=== PATIENT | female | born 1990 | race Hispanic/Latino ===

== ENCOUNTER → 2017-11-06 | Outpatient (REF) | payer OTHER ==
[2017-11-07 09:14] LABS: CONTROL LINE HPYORI INT CTR LINE PRESENT; H PYLORI QUALITATIVE IgG NEGATIVE (NEGATIVE)
== END ==
LOC: M LAB REF 17:46
DX: D69.3 Immune thrombocytopenic purpura (principal)
CPT/HCPCS: 86677

== ENCOUNTER 2017-12-24 09:23 | Day surgery (SDC) | payer OTHER ==
[2017-12-24 10:07] LABS: HEMATOCRIT 36.9 % (36.0-47.0); HEMOGLOBIN 12.5 g/dl (12.0-15.5); MEAN CORPUSCULAR HEMOGLOBIN 30.3 pg (27.0-33.0); MEAN CORPUSCULAR HGB CONC 33.9 g/dl (32.0-36.5); MEAN CORPUSCULAR VOLUME 89.6 fl (80.0-96.0); PLATELET COUNT, AUTOMATED 115 10^3/uL (150-450); RED BLOOD COUNT 4.12 10^6/uL (4.00-5.40); RED CELL DISTRIBUTION WIDTH 12.2 % (11.5-14.5); WHITE BLOOD COUNT 4.6 10^3/uL (4.0-10.0)
[2017-12-24] MEDS: LR 1,000 ML IV (10:30)
[2017-12-24] MEDS: DOXYCYCLINE HYCLATE 100 MG TAB PO ×2 (10:39→14:21)
[2017-12-24] MEDS ORDERED: ROCURONIUM BROMIDE 50 MG/5 ML VIAL As Ordered (11:23)
[2017-12-24] MEDS ORDERED: MIDAZOLAM INJ 2 MG/2 ML VIAL (J2250) As Ordered (11:37)
[2017-12-24] MEDS ORDERED: fentaNYL 100 MCG/2 ML INJECTION (J3010) As Ordered ×2 (11:37→12:22)
[2017-12-24] MEDS ORDERED: dexameTHASONE 4 MG/ML 1ML VIAL (J1100) As Ordered (11:37)
[2017-12-24] MEDS ORDERED: ONDANSETRON 4MG/2ML VIAL (J2405) As Ordered (11:37)
[2017-12-24] MEDS ORDERED: LIDOCAINE 2% INJ 100 MG/5 ML SDV (FOR ANES.) As Ordered (11:37)
[2017-12-24] MEDS ORDERED: PROPOFOL 200 MG/20 ML VIAL As Ordered (11:37)
[2017-12-24] MEDS ORDERED: PHENYLephrine HCL 500 MCG/5 ML (100MCG/ML) SYRINGE (J2370) As Ordered (11:44)
[2017-12-24] MEDS ORDERED: NEOSTIGMINE 10 MG/10 ML VIAL (J2710) As Ordered (11:53)
[2017-12-24] MEDS ORDERED: GLYCOPYRROLATE INJ 0.2 MG/ML 2 ML VIAL As Ordered (11:53)
[2017-12-24] MEDS: LIDOCAINE 1% SDV INJ 30 ML VIAL As Ordered (12:21)
[2017-12-24] MEDS: fentaNYL 100 MCG/2 ML INJECTION (J3010) IV (12:25)
[2017-12-24] MEDS ORDERED: NORCO, ANEXSIA 5/325MG TABLET (HYDROcodone/ACETAMINOPHEN) PO (12:30)
[2017-12-24] MEDS ORDERED: LR 1,000 ML IV (12:30)
[2017-12-24] MEDS ORDERED: ONDANSETRON 4MG/2ML VIAL (J2405) IV (12:30)
[2017-12-24] MEDS ORDERED: KETOROLAC 30 MG/ML VIAL (J1885) As Ordered (12:33)
[2017-12-24] MEDS: KETOROLAC 30 MG/ML VIAL (J1885) IV (12:50)
== END 2017-12-24 14:45 | disposition home or self-care (01) ==
LOC: M SDC 09:23
DX: O02.1 Missed abortion (principal); D69.3 Immune thrombocytopenic purpura; Z88.0 Allergy status to penicillin
CPT/HCPCS: 59820

== ENCOUNTER 2018-01-01 05:51 | Emergency (ER) | payer OTHER ==
[2018-01-01 06:21] LABS: KETONE, URINE AUTO RFX NEGATIVE (NEGATIVE); LEUKOCYTE ESTERASE UR AUTO RFX 2+ (NEGATIVE); NITRITE, URINE AUTO RFX NEGATIVE (NEGATIVE); RBC, URINE AUTO RFX 0 /HPF (0-3); SQUAM EPITHELIAL CELL UR AURFX 0 /HPF (0-6); WBC, URINE AUTO RFX 8 /HPF (0-3)
== END 2018-01-01 07:14 | disposition home or self-care (01) ==
LOC: M ED 05:51
DX: N30.00 Acute cystitis without hematuria (principal); Z98.890 Other specified postprocedural states; Z88.0 Allergy status to penicillin
CPT/HCPCS: 81001

== ENCOUNTER → 2018-04-04 | Outpatient (CLI) | payer OTHER ==
[~2018-04-04] MED LIST: ISOVUE-370 76% 100ML VIAL (Q9967) As Ordered
== END ==
LOC: M RAD 09:43
DX: R59.0 Localized enlarged lymph nodes (principal)
CPT/HCPCS: Q9967

== ENCOUNTER → 2018-04-14 | Outpatient (CLI) | payer OTHER ==
[~2018-04-14] MED LIST changes: -ISOVUE-370 76% 100ML VIAL (Q9967) As Ordered; +LIDOCAINE 1% MDV 20ML VIAL As Ordered
== END ==
LOC: M RADPRO 14:18
DX: R59.0 Localized enlarged lymph nodes (principal); Z88.0 Allergy status to penicillin
CPT/HCPCS: 10022

== ENCOUNTER 2018-12-22 07:47 | Inpatient (IN) | payer OTHER ==
[2018-12-22] VITALS (9 sets, daily range): BP systolic 80–113; BP diastolic 43–63
[~2018-12-22] VITALS: Ht 157.5 cm; Wt 72.0 kg
[~2018-12-22 07:47] MED LIST changes: +BACT800T5 PO; +CLINDAMYCIN 900 MG in APPROPRIATE DILUENT 1 EA IV ONE; +DIFL150T PO; +FLAG500T PO; +IRON65TA2 PO; -LIDOCAINE 1% MDV 20ML VIAL As Ordered; +LR 1,000 ML IV SCH; +MULTTAB20 PO; +PYRI1TAB5 PO; +VITA-158 PO
[2018-12-22] MEDS ORDERED: GENTAMICIN 350 MG in D5W 100 ML IV ONE (09:00)
[2018-12-22] MEDS: PRENATAL VITAMINS CHEWABLE TABLET PO SCH (09:00)
[2018-12-22 09:04] LABS: HEMATOCRIT 36.2 % (36.0-47.0); HEMOGLOBIN 12.1 g/dl (12.0-15.5); MEAN CORPUSCULAR HEMOGLOBIN 30.6 pg (27.0-33.0); MEAN CORPUSCULAR HGB CONC 33.4 g/dl (32.0-36.5); MEAN CORPUSCULAR VOLUME 91.4 fl (80.0-96.0); PLATELET COUNT, AUTOMATED 122 10^3/uL (150-450); RED BLOOD COUNT 3.96 10^6/uL (4.00-5.40)
[2018-12-22] MEDS ORDERED: BICITRA 30ML SOLN UDC As Ordered ONE (09:28)
[2018-12-22] MEDS ORDERED: BICITRA 30ML SOLN UDC PO ONE (09:45)
[2018-12-22] MEDS ORDERED: dexameTHASONE 4 MG/ML 1ML VIAL (J1100) As Ordered ONE (10:01)
[2018-12-22] MEDS ORDERED: KETOROLAC 60 MG/2 ML VIAL (J1885) As Ordered ONE (10:01)
[2018-12-22] MEDS ORDERED: fentaNYL 100 MCG/2 ML INJECTION (J3010) As Ordered ONE (10:01)
[2018-12-22] MEDS ORDERED: MORPHINE PRES-FREE INJ 10 MG/10 ML VIAL (J2274) As Ordered ONE (10:01)
[2018-12-22] MEDS ORDERED: OXYTOCIN INJ 10 UNITS/ML VIAL (J2590) As Ordered ONE (10:01)
[2018-12-22] MEDS ORDERED: ONDANSETRON 4MG/2ML VIAL (J2405) As Ordered ONE (10:01)
[2018-12-22] MEDS ORDERED: NALOXONE INJ 0.4 MG/1 ML VIAL (J2310) IV PRN ×2 (10:17)
[2018-12-22] MEDS ORDERED: diphenhydrAMINE INJ 50MG/ML VIAL (J1200) IV PRN (10:17)
[2018-12-22] MEDS ORDERED: NALBUPHINE HCL 10 MG/ML AMP (J2300) IV PRN (10:17)
[2018-12-22] MEDS ORDERED: ONDANSETRON 4MG/2ML VIAL (J2405) IV PRN ×2 (10:17→11:45)
[2018-12-22] MEDS ORDERED: METOCLOPRAMIDE INJ 10MG/2ML VIAL (J2765) IV PRN ×2 (10:17→11:45)
[2018-12-22] MEDS ORDERED: ePHEDrine SULFATE 25 MG/5 ML(5MG/ML) SYRINGE As Ordered ONE (10:25)
[2018-12-22] MEDS ORDERED: ACETAMINOPHEN 1000MG 100ML IV BTL (OFIRMEV) (J0131 PER 10MG) As Ordered ONE (11:01)
[2018-12-22] MEDS ORDERED: RHOGAM 300 MCG (1500 IU) INJ (J2790) IM SCH (11:30)
[2018-12-22] MEDS ORDERED: MEASLES,MUMPS,RUBELLA VACCINE INJ (MMR-II) (90707) SC SCH (11:30)
[2018-12-22] MEDS ORDERED: PROMETHAZINE 25 MG TAB PO PRN (11:30)
[2018-12-22] MEDS ORDERED: PERCOCET 5MG/325MG TAB PO PRN ×2 (11:30→11:45)
[2018-12-22] MEDS ORDERED: fentaNYL 100 MCG/2 ML INJECTION (J3010) IV PRN (11:45)
[2018-12-22] MEDS ORDERED: MEPERIDINE INJ 25 MG/ML VIAL (J2175) IV PRN (11:45)
[2018-12-22] MEDS ORDERED: LR 1,000 ML IV SCH (11:45)
[2018-12-22] MEDS ORDERED: SLF 3 ML SYR IV PRN (13:45)
[2018-12-22] MEDS: SLF 3 ML SYR IV SCH ×2 (14:00→22:21)
[2018-12-22] MEDS: KETOROLAC 30 MG/ML VIAL (J1885) IV SCH ×2 (16:24→22:21)
--- NOTE | 2018-12-22 23:30 | RO ---
DATE OF PROCEDURE: 12/22/2018 PREPROCEDURE DIAGNOSIS: History of section, no desire for trial of labor after (TOLAC). POSTPROCEDURE DIAGNOSIS: History of section, no desire for trial of labor after . PROCEDURE: Elective repeat low transverse section. SURGEON: Dr. Mike Devine AUDIT ANALYST: Darshaan Elam CNM whose assistance with exposure, retraction, visualization and delivery of the was essential. ANESTHESIA: Spinal. FLUIDS: 1600 mL lactated Ringer's. URINE OUTPUT: 150 mL via Paul catheter. ESTIMATED BLOOD LOSS: 500 mL. COMPLICATIONS: None. ANTIBIOTICS: 900 mL of clindamycin and 350 mg of gentamicin. OPERATIVE FINDINGS: Viable male infant found in cephalic direct occiput posterior (OP) presentation. scores 9 and 9. weight 3390 grams or 7 pounds 8 ounces. DETAILED PROCEDURE DESCRIPTION: The risks, benefits, indications and alternatives of the procedure were reviewed with the patient and informed consent was obtained. The patient was taken to the operating room where spinal anesthesia was obtained without difficulty. She was then prepped and draped in the usual sterile fashion in the dorsal supine position with a leftward tilt. A surgical time-out was then performed in which the patient's identify and planned procedure were verified with the operative team. A Pfannenstiel skin incision was then made with a scalpel and carried through to the underlying layer of fascia using the Bovie. The fascia was incised in the midline and incision was extended laterally with Gibson scissors. The superior aspect of the fascial incision was grasped with Riky clamps, elevated, and the underlying rectus muscles were dissected off with a scalpel. Attention was then turned to the inferior aspect of this incision, which in a similar fashion was grasped, tented up with Riky clamps, and the rectus muscles were dissected off with Gibson scissors. The rectus muscles were then in the midline. The peritoneum was identified and entered digitally. The peritoneal incision was then extended horizontally and superiorly with good visualization of the bladder. A bladder blade was then inserted into the abdomen. The vesicouterine peritoneum was then identified and entered sharply with a scalpel. This incision was then extended laterally and a bladder flap was created digitally. Next, the lower uterine segment was incised in a transverse fashion with a scalpel. The uterine incision was then extended manually. The amniotic sac was artificially ruptured, productive of clear fluid. The was found to be in cephalic direct OP presentation. The infant's head was then delivered atraumatically through the hysterotomy without difficulty followed by the remainder of the body. The infant's nose and mouth were then suctioned with a bulb syringe. The cord was doubly clamped and cut. The infant was then handed off to the awaiting pediatricians. The placenta was then removed manually, and the uterus was exteriorized and cleared of all clots and debris. The uterine incision was then repaired with #0 Monocryl suture in a running locked fashion. A second layer of #0 Monocryl was then used to imbricate the hysterotomy in a vertical fashion. The posterior cul-de-sac was then irrigated. Inspection of hysterotomy revealed excellent hemostasis. The uterus was then returned to the abdomen. The hysterotomy was again inspected, and it was noted to be hemostatic. The paracolic gutters were then irrigated and cleared of all clots and debris. The bladder blade was then removed from the abdomen. The peritoneum was then closed in a running suture of #3-0 Vicryl. The fascia was then closed with #0 Vicryl suture in a running fashion. The subcutaneous fat was closed with #3-0 Vicryl suture in a running fashion. The skin was closed with #4-0 Monocryl in a subcuticular fashion. The incision was then dressed with Steri-Strips and a pressure dressing was applied. At the completion of the case, a bimanual exam was performed, which revealed good uterine tone and minimal vaginal bleeding. The patient tolerated the procedure well. Sponge, lap, and instrument and needle counts were correct times three. The patient was taken to the recovery room in stable condition. [facility] HOSPITALKrissy
[2018-12-23 02:27] VITALS: BP 106/53
[2018-12-23] MEDS: SLF 3 ML SYR IV SCH ×3 (04:45→21:15)
[2018-12-23] MEDS: KETOROLAC 30 MG/ML VIAL (J1885) IV SCH (04:45)
[2018-12-23 06:39] VITALS: BP 94/54
--- NOTE | 2018-12-23 06:40 | IPNPDOC ---
Progress Note Date of Service: Dec 23, 2018 Progress Note Maty is a 28 yo G2 now P2 who is POD#1 s/p an uncomplicated scheduled ERLTCS on [id number]. She is recovering on the canchola. No acute events overnight. Ms. Lane reports feeling well this morning. She is ambulating, tolerating a regular diet, and has minimal pain and minimal lochia. Her koehler catheter has been removed and she is voiding without issues. She denies any fevers/chills, SOB, chest pain, n/v, or pain not relieved by PO medications. Vitals - VSS, afebrile, normotensive, non tachycardic General - AAOX3, sitting up in bed , NAD Abdomen - Fundus firm at U-2. No fundal tenderness. Bandage removed from incision. Incision clean/dry/intact. Steri strips in place. No tenderness to palpation. Extremities - No edema UO - Excellent Labs: Post op CBC stable Ms. Lane is doing well and is making an appropriate post op / recovery. Encourage ambulation, , and IS use. Continue routine post op care. Anticipate discharge home tomorrow. All patient questions answered. Renee Watson DO VS, I&O, 24H, Fishbone Vital Signs/I&O Vital Signs Date Time Temp Pulse Resp B/P (MAP) Pulse Ox O2 Delivery O2 Flow Rate FiO2 12/23/18 02:27 97.9 97 16 106/53 (70) 97 I&O- Last 24 Hours up to 6 AM 12/23/18 05:59 Intake Total 2470 ml Output Total 4125 ml Balance -1655 ml Laboratory Data 24H LABS Laboratory Tests 2 12/22/18 08:52: Nucleated Red Blood Cells % (auto) 0.0, Syphilis Serology NONREACTIVE CBC/BMP Laboratory Tests 12/22/18 08:52 Red Blood Count 3.96 L, Mean Corpuscular Volume 91.4, Mean Corpuscular Hem oglobin 30.6, Mean Corpuscular Hemoglobin Concent 33.4, Red Cell Distribution Width 13.3 RENEE WATSON DO Dec 23, 2018 06:40
[2018-12-23 06:57] LABS: HEMATOCRIT 30.1 % (36.0-47.0); MEAN CORPUSCULAR HEMOGLOBIN 30.1 pg (27.0-33.0); MEAN CORPUSCULAR HGB CONC 32.9 g/dl (32.0-36.5); MEAN CORPUSCULAR VOLUME 91.5 fl (80.0-96.0); PLATELET COUNT, AUTOMATED 114 10^3/uL (150-450); RED BLOOD COUNT 3.29 10^6/uL (4.00-5.40)
[2018-12-23 07:06] LABS: HEMOGLOBIN 9.9 g/dl (12.0-15.5)
[2018-12-23] MEDS: PRENATAL VITAMINS CHEWABLE TABLET PO SCH (08:47)
[2018-12-23 10:02] VITALS: BP 113/51
[2018-12-23] MEDS: IBUPROFEN 800 MG TAB PO SCH ×2 (13:25→21:14)
[2018-12-23 14:00] VITALS: BP 110/55
[2018-12-23] MEDS: PERCOCET 5MG/325MG TAB PO PRN (16:43)
[2018-12-23 18:04] VITALS: BP 105/58
[2018-12-23] MEDS ORDERED: DOCUSATE SODIUM 100 MG CAP PO PRN (21:15)
[2018-12-23 22:00] VITALS: BP 102/56
[2018-12-24 02:00] VITALS: BP 98/72
[2018-12-24] MEDS: IBUPROFEN 800 MG TAB PO SCH (04:44)
[2018-12-24] MEDS: PERCOCET 5MG/325MG TAB PO PRN ×2 (04:47→11:18)
[2018-12-24] MEDS: SLF 3 ML SYR IV SCH (04:48)
[2018-12-24 05:10] VITALS: BP 102/55
[2018-12-24] MEDS ORDERED: ADACEL/BOOSTRIX VACCINE (DIPHTH/PERTUSS/ACELL/TETANUS)0.5ML SYR (90715) IM ONE (09:00)
[2018-12-24] MEDS: PRENATAL VITAMINS CHEWABLE TABLET PO SCH (09:12)
[2018-12-24] MEDS ORDERED: IBUP80TA PO (09:17)
[2018-12-24] MEDS ORDERED: PERCOCET PO (09:17)
--- NOTE | 2018-12-24 09:21 | DS.PDOC ---
Discharge Summary General Date of Admission Dec 22, 2018 at 07:47 Date of Discharge December 24, 2018 Discharge Summary HOSPITAL COURSE: Ms. Lane is a 28 yo G2 now P2 who underwent an uncomplicated scheduled ERLTCS on 22Dec2018. Her course has been unremarkable. On her day of discharge she met all appropriate discharge criteria. She was ambulating, voiding, tolerating a regular diet, had minimal lochia, and her pain was well controlled with PO pain medications. DISCHARGE MEDICATIONS: Please see below. ALLERGIES: Please see below. PHYSICAL EXAMINATION ON DISCHARGE: VITAL SIGNS: Please see below. GENERAL: AAOX3, laying in bed, NAD, pleasant and conversant ABDOMINAL EXAMINATION: Abdomen soft, nondistended. No tenderness to palpation. Fundus firm at U-2. No fundal tenderness. Incision well appearing and steri strips still in place. Incision clean/dry/intact. EXTREMITIES: No edema PSYCHIATRIC EXAMINATION: Affect appropriate LABORATORY DATA: Please see below. ACTIVITY: Pelvic rest for 6 weeks. No heavy lifting for 6 weeks DIET: Regular DISCHARGE PLAN: Discharge home DISPOSITION: Discharge home on 24Dec2018 DISCHARGE INSTRUCTIONS: 1. Pelvic rest for 6weeks 2. No heavy lifting for 6 weeks ITEMS TO FOLLOWUP ON ON OUTPATIENT: 1. 2 week incision check DISCHARGE CONDITION: Stable TIME SPENT ON DISCHARGE: Greater than 20 minutes. Renee Devine DO Vital Signs/I&Os Vital Signs Date Time Temp Pulse Resp B/P (MAP) Pulse Ox O2 Delivery O2 Flow Rate FiO2 12/24/18 05:17 16 12/24/18 05:10 97.7 74 102/55 (71) 96 Discharge Medications Scheduled Ascorbic Acid (Vitamin C) 500 Mg Tablet, 500 MG PO TID, (Reported) Ibuprofen (Ibuprofen) 800 Mg Tablet, 800 MG PO Q8H No122/Iron/Folic Acid ( Multi Tablet) 1 Each Tablet, 1 TAB PO DAILY, (Reported) Scheduled PRN Oxycodone/Acetaminophen (Oxycodone-Acetaminophen 5-325) 1 Each Tablet, 1 TAB PO Q4HP PRN for MILD PAIN (PS 1-4) Oxycodone/Acetaminophen (Oxycodone-Acetaminophen 5-325) 1 Each Tablet, 2 TAB PO Q4HP PRN for MODERATE/SEVERE PAIN (PS 5-10) Allergies Coded Allergies: Penicillins (Verified Allergy, Intermediate, Hives, 09/01/18) RENEE DEVINE DO Dec 24, 2018 09:21
== END 2018-12-24 14:00 | disposition home or self-care (01) | DRG 773 ==
LOC: M LDI 07:47 → M OBS 12:44
PROVIDERS: ADMIT Obstetrics & Gynecology; ATTEND Obstetrics & Gynecology
PROC: 10D00Z1 Extraction of Products of Conception, Low, Open Approach (ICD-10-PCS; principal; 2018-12-22 09:30)
DX: O34.211 Maternal care for low transverse scar from previous cesarean delivery (principal); Z3A.39 39 weeks gestation of pregnancy; Z37.0 Single live birth

== ENCOUNTER → 2019-04-21 | Outpatient (CLI) | payer OTHER ==
[~2019-04-21] MED LIST changes: -CLINDAMYCIN 900 MG in APPROPRIATE DILUENT 1 EA IV ONE; +IBUP80TA PO; -LR 1,000 ML IV SCH; +PERCOCET PO
--- NOTE | 2019-04-22 09:41 | REP ---
ULTRASOUND LEFT BREAST: Real-time sonographic evaluation of the left breast performed. Patient is 4 months and complains of pain between 12-o'clock and 3-o'clock position in the left breast. Ultrasound of this area demonstrates dense fibroglandular tissue diffusely. In the left axilla, two lymph nodes are seen which morphologically appear normal, measuring 2.1 x 0.9 x 1.7 cm and 1.7 x 0.8 x 0.7 cm. There is an adjacent elongated oval hyperechoic area of tissue with multiple subcentimeter cystic areas diffusely within. The hyperechoic area measures 3.3 x 1.2 x 2.1 cm. This is likely related to prominent fibroglandular tissue as a result of . IMPRESSION: ACR 3 probably benign. In the region of pain left breast between 12-o'clock and 3-o'clock position and in the left axilla, there is dense prominent fibroglandular tissue. There are two lymph nodes in the left axilla which are morphologically normal in appearance and demonstrate a normal short axis dimension. Also in the left axilla, is an elongated oval hyperechoic area of tissue with multiple tiny cystic areas within, most consistent with architectural changes and stimulation from . Recommend 6-month followup ultrasound. Electronically Signed by Aidan Wu MD 04/22/2019 10:08 A
== END ==
LOC: M RAD 17:34
PROVIDERS: ATTEND Family Medicine
DX: N63.0 Unspecified lump in unspecified breast (principal)

== ENCOUNTER → 2019-06-14 | Outpatient (REF) | payer OTHER ==
[2019-06-14 20:45] LABS: CHLAMYDIA DNA AMPLIFICATION NEGATIVE (NEGATIVE); GC DNA AMPLIFICATION NEGATIVE (NEGATIVE)
== END ==
LOC: M SFHCLERA 15:00
PROVIDERS: ATTEND Nurse Practitioner Family
DX: R30.0 Dysuria (principal)
CPT/HCPCS: 81002; 81025; 87086; 87661; G0463

== ENCOUNTER → 2019-11-04 | Outpatient (REF) | payer OTHER ==
[2019-11-04 19:25] LABS: CHLAMYDIA DNA AMPLIFICATION NEGATIVE (NEGATIVE); GC DNA AMPLIFICATION NEGATIVE (NEGATIVE)
== END ==
LOC: M SFHCLERA 12:20
PROVIDERS: ATTEND Nurse Practitioner Family
DX: R30.0 Dysuria (principal)
CPT/HCPCS: 81002; 81025; 87086; 87661; G0463

== ENCOUNTER 2019-11-23 07:48 | Emergency (ER) | payer OTHER ==
[~2019-11-23] VITALS: Ht 157.5 cm; Wt 61.9 kg
[2019-11-23 07:48] VITALS: BP 117/62
[2019-11-23 08:27] LABS: BASO % 0.3 % (0.0-1.0); EOS # 0.1 10^3/uL (0.0-0.5); EOS % 1.6 % (0.0-3.0); HEMATOCRIT 39.5 % (36.0-47.0); LYMPH # 1.2 10^3/uL (1.5-5.0); LYMPH % 33.1 % (24.0-44.0); MEAN CORPUSCULAR HEMOGLOBIN 31.1 pg (27.0-33.0); MEAN CORPUSCULAR HGB CONC 32.9 g/dl (32.0-36.5); MEAN CORPUSCULAR VOLUME 94.5 fl (80.0-96.0); MONO # 0.3 10^3/uL (0.0-0.8); MONO % 9.1 % (0.0-5.0); NEUTROPHILS # 2.1 10^3/uL (1.5-8.5); NEUTROPHILS % 55.6 % (36.0-66.0); RED BLOOD COUNT 4.18 10^6/uL (4.00-5.40); WHITE BLOOD COUNT 3.8 10^3/uL (4.0-10.0)
[2019-11-23 08:29] LABS: PLATELET COUNT, AUTOMATED 94 10^3/uL (150-450)
[2019-11-23 08:50] LABS: ALBUMIN 4.1 GM/DL (3.2-5.2); ALT/SGPT 20 U/L (12-78); BILIRUBIN,DIRECT 0.1 MG/DL (0.0-0.2); BILIRUBIN,TOTAL 0.3 MG/DL (0.2-1.0); BLOOD UREA NITROGEN 14 MG/DL (7-18); CALCIUM LEVEL 9.2 MG/DL (8.5-10.1); CARBON DIOXIDE LEVEL 27 MEQ/L (21-32); CHLORIDE LEVEL 107 MEQ/L (98-107); CREATININE FOR GFR 0.81 MG/DL (0.55-1.30); GLOMERULAR FILTRATION RATE > 60.0 (>60); GLUCOSE, FASTING 84 MG/DL (70-100); POTASSIUM SERUM 3.8 MEQ/L (3.5-5.1); SODIUM LEVEL 140 MEQ/L (136-145); TOTAL PROTEIN 7.5 GM/DL (6.4-8.2)
[2019-11-23 09:57] LABS: HEPATITIS B SURFACE ANTIBODY POSITIVE (POSITIVE)
[2019-11-23 10:09] LABS: HEPATITIS B SURFACE ANTIGEN NEGATIVE (NEGATIVE)
[2019-11-23 10:36] LABS: HEPATITIS C VIRUS ABY INDEX 0.2 INDEX (<0.8); HIV 1&2 SCREEN CENTAUR NEGATIVE (NEGATIVE)
[2019-11-23 10:37] LABS: CHLAMYDIA DNA AMPLIFICATION NEGATIVE (NEGATIVE); GC DNA AMPLIFICATION NEGATIVE (NEGATIVE)
[2019-11-23] MEDS ORDERED: MACR100C43 PO (10:45)
[2019-11-26 09:07] LABS: HSV-1 DNA Negative (Negative); HSV-2 DNA Negative (Negative)
== END 2019-11-23 10:51 | disposition home or self-care (01) ==
LOC: M ED 07:48
DX: N39.0 Urinary tract infection, site not specified (principal); Z88.0 Allergy status to penicillin

== ENCOUNTER 2019-11-25 18:38 | Emergency (ER) | payer OTHER ==
[~2019-11-25] VITALS: Ht 157.5 cm; Wt 63.2 kg
[~2019-11-25 18:38] MED LIST changes: +MACR100C43 PO
[2019-11-25] MEDS ORDERED: DIFL200T PO (18:45)
[2019-11-25] MEDS ORDERED: BACT800T5 PO (18:45)
[2019-11-25] MEDS ORDERED: diphenhydrAMINE 50MG CAP PO ONE (19:00)
[2019-11-25] MEDS ORDERED: 3 DA2CRE PV (19:01)
[2019-11-25] MEDS ORDERED: LEVO250T12 PO (19:10)
[2019-11-25] MEDS ORDERED: methylPREDNISolone 125MG 2ML VIAL IM ONE (19:30)
[2019-11-25 19:56] VITALS: BP 106/59
== END 2019-11-25 20:02 | disposition home or self-care (01) ==
LOC: M ED 18:38
DX: N39.0 Urinary tract infection, site not specified (principal); T88.7XXA Unspecified adverse effect of drug or medicament, initial encounter
CPT/HCPCS: 96372; 99283; J2930

== ENCOUNTER → 2020-01-26 | Outpatient (REF) | payer OTHER ==
[~2020-01-26] MED LIST changes: +3 DA2CRE PV; +DIFL200T PO; +LEVO250T12 PO
[2020-01-26 19:15] LABS: APPEARANCE, URINE CLEAR (CLEAR); BACTERIA, URINE AUTO NEGATIVE (NEGATIVE); BILIRUBIN, URINE AUTO NEGATIVE (NEGATIVE); BLOOD, URINE BLOOD NEGATIVE (NEGATIVE); COLOR, URINE YELLOW (YELLOW); GLUCOSE, URINE (UA) AUTO NEGATIVE (NEGATIVE); KETONE, URINE AUTO NEGATIVE (NEGATIVE); LEUKOCYTE ESTERASE, URINE AUTO NEGATIVE (NEGATIVE); MUCUS, URINE SMALL (NEGATIVE); NITRITE, URINE AUTO NEGATIVE (NEGATIVE); PROTEIN, URINE AUTO NEGATIVE (NEGATIVE); RBC, URINE AUTO 0 /HPF (0-3); SPECIFIC GRAVITY URINE AUTO 1.025 (1.002-1.035); SQUAMOUS EPITHELIAL CELL UR AU 0 /HPF (0-6); UROBILINOGEN, URINE AUTO 0.2 mg/dL (0.0-2.0); WBC, URINE AUTO 0 /HPF (0-3)
== END ==
LOC: M LAB REF 18:41
PROVIDERS: ATTEND Nurse Practitioner Women's Health
DX: N39.0 Urinary tract infection, site not specified (principal)

== ENCOUNTER → 2020-02-16 | Outpatient (REF) | payer OTHER ==
[2020-02-16 16:32] LABS: APPEARANCE, URINE CLEAR (CLEAR); BACTERIA, URINE AUTO NEGATIVE (NEGATIVE); BILIRUBIN, URINE AUTO NEGATIVE (NEGATIVE); BLOOD, URINE BLOOD NEGATIVE (NEGATIVE); COLOR, URINE YELLOW (YELLOW); GLUCOSE, URINE (UA) AUTO NEGATIVE (NEGATIVE); KETONE, URINE AUTO NEGATIVE (NEGATIVE); LEUKOCYTE ESTERASE, URINE AUTO NEGATIVE (NEGATIVE); MUCUS, URINE SMALL (NEGATIVE); NITRITE, URINE AUTO NEGATIVE (NEGATIVE); PROTEIN, URINE AUTO NEGATIVE (NEGATIVE); RBC, URINE AUTO 2 /HPF (0-3); SPECIFIC GRAVITY URINE AUTO 1.011 (1.002-1.035); SQUAMOUS EPITHELIAL CELL UR AU 0 /HPF (0-6); UROBILINOGEN, URINE AUTO 0.2 mg/dL (0.0-2.0); WBC, URINE AUTO 0 /HPF (0-3)
== END ==
LOC: M LAB REF 16:08
PROVIDERS: ATTEND Nurse Practitioner Women's Health
DX: N39.0 Urinary tract infection, site not specified (principal)